=== PATIENT | female | born 1950 | race Caucasian/White ===

== ENCOUNTER 2016-09-08 10:15 | Outpatient (CLI) ==
[2016-06-30 12:50] VITALS: BMI 30.1
[2016-09-08 10:36] LABS: BASOPHILS # (AUTO) 0.1 K/uL (0-0.2); BASOPHILS % (AUTO) 0.9 % (0.0-3.0); EOSINOPHILS # (AUTO) 0.1 K/ul (0.0-0.7); EOSINOPHILS % (AUTO) 1.7 % (0.0-7.0); IMMATURE GRANULOCYTE % (AUTO) 0.3 % (0.0-5.0); LYMPHOCYTES # (AUTO) 2.2 K/uL (0.60-3.4); LYMPHOCYTES % (AUTO) 28.1 (10.0-50.0); MEAN CORPUSCULAR HEMOGLOBIN 28.7 pg (27.0-31.0); MEAN CORPUSCULAR HGB CONC 32.6 (31.8-35.4); MEAN CORPUSCULAR VOLUME 88.1 fl (81.0-99.0); MONOCYTES # (AUTO) 0.4 K/uL (0.4-2.0); MONOCYTES % (AUTO) 5.6 (0-10); NEUTROPHILS # (AUTO) 4.9 K/ul (2.0-6.9); NEUTROPHILS % (AUTO) 63.4; PLATELET COUNT 210 10^3/uL (140-440); RED BLOOD COUNT 4.88 10^6/ul (4.20-5.40); WHITE BLOOD COUNT 7.65 K/ul (4.6-10.2)
[2016-09-08 10:38] LABS: BILIRUBIN,URINE Negative (NEGATIVE); KETONES,URINE Negative (NEGATIVE); LEUKOCYTE ESTERASE ,URINE Negative (NEGATIVE); NITRITE,URINE Negative (NEGATIVE); PROTEIN,URINE Negative (NEGATIVE); URINE, BLOOD Negative (NEGATIVE)
[2016-09-08 10:41] LABS: ADD URINE MICROSCOPIC NO
[2016-09-08 10:42] LABS: MONO INTERNAL QC INTERNAL QC VALID
[2016-09-08 10:55] LABS: ALBUMIN 3.6 g/dL (3.4-5.0); ALBUMIN/GLOBULIN RATIO 0.97; ANION GAP 15.2; BILIRUBIN,TOTAL 0.59 mg/dL (0.00-1.20); BUN/CREATININE RATIO 15.18; CALCIUM 9.1 mg/dL (8.2-10.2); CREATININE 0.79 mg/dL (0.60-1.30); POTASSIUM 4.2 mmol/L (3.5-5.10); TOTAL PROTEIN 7.3 g/dL (5.8-8.1)
== END 2016-09-08 10:16 | disposition home or self-care (01) ==
LOC: LAB 10:15
PROVIDERS: ATTEND Nurse Practitioner Family
DX: Z20.828 Contact with and (suspected) exposure to other viral communicable diseases (principal); R35.0 Frequency of micturition; I49.9 Cardiac arrhythmia, unspecified; E53.8 Deficiency of other specified B group vitamins; E55.9 Vitamin D deficiency, unspecified
CPT/HCPCS: 36415; 80053; 81001; 82306; 82607; 85025; 86308

== ENCOUNTER 2017-03-04 11:05 | Outpatient (CLI) | payer OTHER ==
[2016-06-30 12:50] VITALS: BMI 30.1
== END 2017-03-04 11:06 | disposition home or self-care (01) ==
LOC: LAB 11:05
PROVIDERS: ATTEND Internal Medicine
DX: K50.918 Crohn's disease, unspecified, with other complication (principal); R10.9 Unspecified abdominal pain; R19.7 Diarrhea, unspecified
CPT/HCPCS: 36415

== ENCOUNTER 2017-04-02 10:45 | Outpatient (CLI) | payer OTHER ==
[2016-06-30 12:50] VITALS: BMI 30.1
[2017-04-02 12:48] LABS: BASOPHILS # (AUTO) 0.1 K/uL (0-0.2); BASOPHILS % (AUTO) 0.8 % (0.0-3.0); EOSINOPHILS # (AUTO) 0.2 K/ul (0.0-0.7); EOSINOPHILS % (AUTO) 2.3 % (0.0-7.0); HEMATOCRIT 43.4 % (37.0-47.0); HEMOGLOBIN 14.5 g/dl (12.0-16.0); IMMATURE GRANULOCYTE % (AUTO) 0.2 % (0.0-5.0); LYMPHOCYTES # (AUTO) 2.3 K/uL (0.60-3.4); LYMPHOCYTES % (AUTO) 26.6 (10.0-50.0); MEAN CORPUSCULAR HEMOGLOBIN 29.5 pg (27.0-31.0); MEAN CORPUSCULAR HGB CONC 33.4 (31.8-35.4); MEAN CORPUSCULAR VOLUME 88.4 fl (81.0-99.0); MONOCYTES # (AUTO) 0.6 K/uL (0.4-2.0); MONOCYTES % (AUTO) 6.6 (0-10); NEUTROPHILS # (AUTO) 5.5 K/ul (2.0-6.9); NEUTROPHILS % (AUTO) 63.5; PLATELET COUNT 219 10^3/uL (140-440); RED BLOOD COUNT 4.91 10^6/ul (4.20-5.40); WHITE BLOOD COUNT 8.62 K/ul (4.6-10.2)
[2017-04-02 13:14] LABS: ALBUMIN 3.7 g/dL (3.4-5.0); ALBUMIN/GLOBULIN RATIO 1.09; ANION GAP 15.7; BILIRUBIN,TOTAL 0.3 mg/dL (0.00-1.20); BUN/CREATININE RATIO 11.53; CALCIUM 9.8 mg/dL (8.2-10.2); CREATININE 0.78 mg/dL (0.60-1.30); POTASSIUM 4.7 mmol/L (3.5-5.10); TOTAL PROTEIN 7.1 g/dL (5.8-8.1)
[2017-04-02 13:39] LABS: CHOL/HDL RATIO 3.6 (4.5-5.5); FERRITIN 66.1 ng/mL (4.63-204.00)
== END 2017-04-02 10:46 | disposition home or self-care (01) ==
LOC: LAB 10:45
PROVIDERS: ATTEND Nurse Practitioner Family
DX: E53.8 Deficiency of other specified B group vitamins (principal); I49.9 Cardiac arrhythmia, unspecified; D64.9 Anemia, unspecified; I10 Essential (primary) hypertension
CPT/HCPCS: 36415; 80053; 80061; 82607; 82728; 83540; 83550; 84466; 85025

== ENCOUNTER 2017-04-13 13:20 | Outpatient (CLI) ==
[2016-06-30 12:50] VITALS: BMI 30.1
== END 2017-04-13 13:21 | disposition home or self-care (01) ==
LOC: LAB 13:20
PROVIDERS: ATTEND Nurse Practitioner Family
DX: E55.9 Vitamin D deficiency, unspecified (principal)
CPT/HCPCS: 36415; 82306

== ENCOUNTER 2017-09-17 00:38 | Outpatient (CLI) ==
[2017-09-17 22:26] VITALS: BMI 29.7
== END 2017-09-17 01:03 ==
LOC: AMBL 00:38
PROVIDERS: ATTEND Emergency Medicine
DX: J93.9 Pneumothorax, unspecified (principal); R06.9 Unspecified abnormalities of breathing; R00.0 Tachycardia, unspecified

== ENCOUNTER 2017-09-17 22:11 | Emergency (ER) | payer OTHER ==
[2017-09-17 22:26] VITALS: BMI 29.7
[2017-09-17] MEDS ORDERED: XOPENEX 1.25 MG NEB ONE (22:27)
[2017-09-17] MEDS ORDERED: LASIX IVP STA (22:30)
[2017-09-17] MEDS ORDERED: ATROVENT 0.02% NEB NEB STA (22:30)
[2017-09-17] MEDS ORDERED: XOPENEX 1.25 MG NEB STA (22:30)
[2017-09-17] MEDS ORDERED: SOLU-MEDROL 125 MG IVP STA (22:30)
--- NOTE | 2017-09-17 22:34 | ED.PDOC ---
General ED Provider: Dr. DORETHA GRIGGS Chief Complaint: Shortness of Air Stated Complaint: Shortness of breath since noon, EMT brought patient. Time Seen by Physician: 22:32 Mode of Arrival: Ambulance Information Source: Patient, EMT Primary Care Provider: DENVER ALCANTARA Nursing and Triage Documentation Reviewed and Agree: Yes Reviewed sepsis parameters & appropriate labs ordered?: Yes System Inflammatory Response Syndrome: Pulse >90 BPM, Resp >20/Minute Sepsis Protocol: For patient's 13 years and over: Temp is 96.8 and below OR 101 and greater Pulse >90 BPM Resp >20/minute Acutely Altered Mental Status Are patient's symptoms suggestive of a new infection, such as: -Pneumonia -Skin, Soft Tissue -Endocarditis -UTI -Bone, Joint Infection -Implantable Device -Acute Abdominal Infection -Wound Infection -Meningitis -Blood Stream Catheter Infection -Unknown Respiratory Complaint Exam - Shortness of Air Complaint/Exam Symptoms Are: Still present Timing: Constant Initial Severity: Severe Current Severity: Severe Character: Reports: Dyspnea at rest Aggravating: Reports: Allergens Alleviating: Reports: None Associated Signs and Symptoms: Reports: Cough, Wheezing, Rapid breathing. Denies: Chest pain with cough, Chest pain, Fever, Chills, Diaphoresis, Nasal congestion, Dizziness, Calf pain, Calf swelling, Edema, Labored breathing, Decreased intake Related History: Reports: Similar episode History of Healthcare-Acquired Pneumonia: No Pulmonary Embolism Risk Factors: Reports: None Cardiac Risk Factors: Reports: CAD, Hypertension Pseudomonas Risk Factors: Reports: None Tuberculosis Risk Factors: Reports: None Home Oxygen Use: No Recent Stress Test: No Recent Echo/LV Function: No Respiratory Distress: Severe Stridor Present: No Tracheal Deviation: No Subcutaneous Emphysema: No Accessory Muscle Use: Yes Retractions: Supraclavicular, Intercostal, Diaphragmatic Diminished Breath Sounds: Yes Prolonged Expiratory Phase: Yes Unable to Speak Full Sentences: Yes Fatigue: No Leg Swelling: No Blake's Sign Present: No Grunting Respirations: No Kussmaul Respirations: No Differential Diagnoses: CHF, COPD Exacerbation, Pneumonia Quality Indicators for AMI: EKG in 10min. Review of Systems - Review Of Systems Constitutional: Reports: Malaise, Weakness Eyes: Reports: No symptoms Ears, Nose, Mouth, Throat: Reports: No symptoms Respiratory: Reports: Cough, Short of air Cardiac: Reports: No symptoms GI: Reports: No symptoms : Reports: No symptoms Musculoskeletal: Reports: No symptoms Skin: Reports: No symptoms Neurological: Reports: No symptoms Endocrine: Reports: No symptoms Hematologic/Lymphatic: Reports: No symptoms All Other Systems: Reviewed and Negative Past Medical History - Past Medical History Previously Healthy: Yes Endocrine: Reports: None Cardiovascular: Reports: Hypertension Respiratory: Reports: COPD Hematological: Reports: None Gastrointestinal: Reports: Crohn's Genitourinary: Reports: None Neuro/Psych: Reports: Depression Musculoskeletal: Reports: Arthritis, Back Pain Cancer: Reports: None Last Menstrual Period: post menopausal - Surgical History General Surgical History: Reports: Appendectomy, Other (partial colectomy, Parathyroidectomy rt side) - Family History Family History: Reports: None - Social History Smoking Status: Former smoker Hx Substance Use: No Alcohol Screening: None - Immunizations Tetanus Shot up to Date: No (unknown) Physical Exam - Physical Exam Appearance: Ill-appearing, Obese Ill-appearing: Severe Eyes: ELDON, EOMI, Conjunctiva clear ENT: Ears normal, Nose normal, Oropharynx normal Respiratory: Breath sounds diminished, Crackles, Wheezes Cardiovascular: RRR, Tachycardia GI/: Soft, Nontender, No masses, Bowel sounds normal, No Organomegaly Musculoskeletal: Normal strength, ROM intact, No edema, No calf tenderness Skin: Warm, Dry, Normal color Neurological: Sensation intact, Motor intact, Reflexes intact, Cranial nerves intact, Alert, Oriented Psychiatric: Affect appropriate, Mood appropriate Re-Evaluation - Re-Evaluation Time of Re-Evaluation: 00:26 Status: Improved Physician Notification - Case Discussed Time of Notification: 00:26 (Dr Ba) Critical Care Note - Critical Care Note Total Time (mins): 30 Course - Course Hematology/Chemistry: 09/17/17 22:53 09/17/17 22:53 Orders, Labs, Meds: Lab Review 09/17/17 09/17/17 09/17/17 22:30 22:53 22:53 WBC 11.67 H RBC 5.00 Hgb 14.9 Hct 44.3 MCV 88.6 MCH 29.8 MCHC 33.6 RDW Coeff of Rubin 13.6 Plt Count 204 Immature Gran % (Auto) 0.3 Neut % (Auto) 63.8 Lymph % (Auto) 28.7 Banks % (Auto) 5.6 Eos % (Auto) 1.2 Baso % (Auto) 0.4 Immature Gran # (Auto) 0.0 Neut # 7.4 H Lymph # 3.4 Banks # 0.7 Eos # 0.1 Baso # 0.1 Puncture Site Rrad O2 Saturation 87.0 L ABG pH 7.329 L ABG pCO2 45.4 H ABG pO2 57.0 L* ABG HCO3 23.9 ABG Total CO2 25 ABG Base Excess -2 Hung Test + O2 Delivery Device Neb Oxygen Liter Flow 8.00 Sodium 142 Potassium 3.7 Chloride 110 H Carbon Dioxide 22 L Anion Gap 13.7 BUN 10 Creatinine 0.82 Estimated GFR (MDRD) 70.00 BUN/Creatinine Ratio 12.19 Glucose 143 H Lactic Acid Calcium 9.3 Total Bilirubin 0.7 AST 22 ALT 21 Alkaline Phosphatase 122 Total Creatine Kinase 72 Troponin I 0.0240 Total Protein 7.9 Albumin 3.9 Globulin 4.0 Albumin/Globulin Ratio 0.98 Procalcitonin 09/17/17 09/17/17 22:53 22:53 WBC RBC Hgb Hct MCV MCH MCHC RDW Coeff of Rubin Plt Count Immature Gran % (Auto) Neut % (Auto) Lymph % (Auto) Banks % (Auto) Eos % (Auto) Baso % (Auto) Immature Gran # (Auto) Neut # Lymph # Banks # Eos # Baso # Puncture Site O2 Saturation ABG pH ABG pCO2 ABG pO2 ABG HCO3 ABG Total CO2 ABG Base Excess Hung Test O2 Delivery Device Oxygen Liter Flow Sodium Potassium Chloride Carbon Dioxide Anion Gap BUN Creatinine Estimated GFR (MDRD) BUN/Creatinine Ratio Glucose Lactic Acid 8.9 Calcium Total Bilirubin AST ALT Alkaline Phosphatase Total Creatine Kinase Troponin I Total Protein Albumin Globulin Albumin/Globulin Ratio Procalcitonin < 0.05 Orders Category Date Time Status ABG DRAW REQUEST Stat CARDIO 09/17/17 22:31 Completed EKG-(ED ONLY) Stat CARDIO 09/17/17 22:30 Completed NEBULIZER TREATMENT Stat CARDIO 09/17/17 22:31 Completed ED CATHETER INSERTION AND CARE .ONCE EMERGENCY 09/17/17 23:17 Active ABG Stat LAB 09/17/17 22:30 Completed CBC W/ AUTO DIFF Stat LAB 09/17/17 22:53 Completed COMPREHENSIVE METABOLIC PANEL Stat LAB 09/17/17 22:53 Completed CREATINE KINASE Stat LAB 09/17/17 22:53 Completed LACTIC ACID Stat LAB 09/17/17 22:53 Completed PROCALCITONIN Stat LAB 09/17/17 22:53 Completed SPUTUM CULTURE Stat LAB 09/17/17 22:32 Uncollected TROPONIN I Stat LAB 09/17/17 22:53 Completed Furosemide [Lasix] MEDS 09/17/17 22:30 Discontinued 40 mg IVP ONCE STA Ipratropium [place] 0.02% Neb [Atrovent 0.02% Neb] MEDS 09/17/17 22:30 Discontinued 1 vial NEB ONCE STA Levalbuterol HCl [Xopenex 1.25 mg] MEDS 09/17/17 22:27 Discontinued 1 vial NEB .STK-MED ONE Levalbuterol HCl [Xopenex 1.25 mg] MEDS 09/17/17 22:30 Discontinued 1 vial NEB ONCE STA Lidocaine HCl [Uro-Jet] MEDS 09/17/17 23:17 Discontinued 10 ml [id number] ONCE STA Methylprednisolone Sod Succ/Pf [Solu-Medrol 125 mg] MEDS 09/17/17 22:30 Discontinued 125 mg IVP ONCE STA CHEST, 1V AP ONLY Stat RADS 09/17/17 23:[address] CHEST W/O CONTRAST Stat RADS 09/17/17 22:30 Completed Medications Discontinued Medications Generic Name Dose Route Start Last Admin Trade Name Freq PRN Reason Stop Dose Admin Furosemide 40 mg 09/17/17 22:30 09/17/17 22:17 Lasix IVP 09/17/17 22:31 40 mg ONCE STA Administration Ipratropium [place] 1 vial 09/17/17 22:30 09/17/17 22:20 Atrovent 0.02% Neb NEB 09/17/17 22:31 1 vial ONCE STA Administration Levalbuterol HCl 1 vial 09/17/17 22:30 09/17/17 22:51 Xopenex 1.25 Mg NEB 09/17/17 22:31 Not Given ONCE STA Lidocaine HCl 10 ml 09/17/17 23:17 09/17/17 23:49 Uro-Jet MUCOUSMEMB 09/17/17 23:18 Not Given ONCE STA Methylprednisolone Sodium Succinate 125 mg 09/17/17 22:30 09/17/17 22:13 Solu-Medrol 125 Mg IVP 09/17/17 22:31 125 mg ONCE STA Administration Vital Signs: Temp Pulse Resp BP Pulse Ox 09/17/17 22:49 95 H 31 H 144/109 H 88 L 09/17/17 22:32 86 31 H 139/77 92 L 09/17/17 22:13 96.3 F L 102 H 27 H 170/86 H 85 L Departure - Departure Time of Disposition: 23:22 Disposition: TSF SHORT-TRM HOSP Discharge Problem: COPD exacerbation, Pneumothorax on left Instructions: COPD (Chronic Obstructive Pulmonary Disease) (ED) Condition: Serious Pt referred to PMD for follow-up: No IPMP verified?: No Additional Instructions: Chest Xray showed 4.1 mm apical pneumo after the Needle thoracotomy Patient will be transferred to [facility]. Allergies/Adverse Reactions: Allergies albuterol Adverse Reaction (Verified 09/17/17 22:22) Difficulty Breathing doxycycline Adverse Reaction (Verified 09/17/17 22:22) Td Allergy (Severe, Uncoded 09/17/17 22:22) made me sick Home Medications: Ambulatory Orders Levalbuterol Tartrate [Xopenex Hfa] 2 puff IH Q6HR PRN 09/08/13 Flexeril 10 mg PO BID PRN 07/12/14 Diltiazem HCl [Cardizem Cd] 120 mg PO DAILY 11/23/14 Fluticasone/Salmeterol [Advair 250-50 Diskus] 2 each IH BID BREAKFAST&LUNCH Calcium Carbonate/Vitamin D3 [Calcium + Vitamin D Tablet] 1 each PO DAILY Multivitamin [Multi-Day Vitamins] 1 each PO d 10/31/15 Levalbuterol HCl [Xopenex] 1.25 mg IH BID PRN 06/25/16 L.acidoph,Paracasei, B.lactis [Probiotic] 1 each PO DAILY 09/08/16 Levalbuterol Tartrate [Xopenex Hfa] 15 gm IH DAILY PRN 04/13/17 Transfer Form Completed: Yes Disposition Discussed With: Patient, Family
[2017-09-17] MEDS ORDERED: URO-JET MUCOUSMEMB STA (23:17)
--- NOTE | 2017-09-17 23:23 | CT ---
EXAM: CT of the chest without contrast. HISTORY: Short of breath. PROCEDURE: Contiguous axial CT images of the chest without contrast with coronal and sagittal reform ats. FINDINGS: The heart is within normal limits in size. The thoracic aorta is within normal limits in d iameter. There are calcified mediastinal and hilar lymph nodes. There are emphysematous changes thro ughout both lungs. There are scattered areas of interstitial fibrosis and scarring in the right lung. There is a large left pneumothorax. There is moderate left to right mediastinal shift, suspicious fo r a tension pneumothorax. There is left lung consolidation. The bones and soft tissues are unremarkab le. The adrenal glands and liver are normal in appearance. There is a ventral hernia which is incompl etely visualized measuring at least 8.5 x 4 cm. There is fat in the visualized portion of the hernia. Impression: Large left pneumothorax with moderate left to right mediastinal shift, suspicious for a tension pneumothorax. Recommend stat chest tube placement. Left lung consolidation consistent with atelectasis and/or pneumonia. Chronic obstructive pulmonary disease with interstitial fibrosis and scarring. Ventral hernia as described. Critical result: Results discussed with the patient's ER physician Dr Perry on 09/17/2017 at 11:17 p.m.
--- NOTE | 2017-09-18 00:07 | DI ---
EXAM: Portable chest HISTORY: Needle aspiration COMPARISON: CT scan thorax 09/17/2017 FINDINGS: The cardiomediastinal silhouette is stable. There are emphysematous changes. There are b enign granulomatous changes.. There has been partial re-expansion of the left lung with 4.[address] eural separation at the left apex. Consolidation is noted posteromedially at the left lung base.. S cattered interstitial fibrotic changes noted IMPRESSION: Partial reexpansion of the left lung with left apical pneumothorax measuring 4.1 mm pleural separatio n. Consolidation left lung base may be related to atelectasis and/or infiltrate. Scattered fibrotic change
[2017-09-18 00:43] VITALS: BP 112/68; TEMP 97.3
== END 2017-09-18 00:35 | disposition short-term general hospital (02) ==
LOC: ED 22:11
DX: J44.1 Chronic obstructive pulmonary disease with (acute) exacerbation (principal); J93.9 Pneumothorax, unspecified; K50.90 Crohn's disease, unspecified, without complications; I10 Essential (primary) hypertension; I25.10 Atherosclerotic heart disease of native coronary artery without angina pectoris; R53.1 Weakness; R53.83 Other fatigue; R06.02 Shortness of breath; R00.0 Tachycardia, unspecified; Z87.891 Personal history of nicotine dependence; Z79.899 Other long term (current) drug therapy; I48.91 Unspecified atrial fibrillation; R06.2 Wheezing
CPT/HCPCS: 36415; 80053; 82550; 82803; 83605; 84145; 84484; 85025; 93005; 93010; 94640; 96374; 96375; 99285

== ENCOUNTER 2018-06-10 14:51 | Outpatient (CLI) | payer OTHER ==
[2018-03-02 18:55] VITALS: BMI 29.7
== END 2018-06-10 14:52 | disposition home or self-care (01) ==
LOC: CAR 14:51
PROVIDERS: ATTEND Internal Medicine Pulmonary Disease
DX: G47.30 Sleep apnea, unspecified (principal)
CPT/HCPCS: 95810

== ENCOUNTER 2018-10-14 12:17 | Outpatient (CLI) | payer OTHER ==
[2018-03-02 18:55] VITALS: BMI 29.7
== END 2018-10-14 12:18 | disposition home or self-care (01) ==
LOC: RHC-LAB 12:17
PROVIDERS: ATTEND Nurse Practitioner Family
DX: E55.9 Vitamin D deficiency, unspecified (principal); E66.9 Obesity, unspecified; G47.00 Insomnia, unspecified; E53.8 Deficiency of other specified B group vitamins; Z99.81 Dependence on supplemental oxygen
CPT/HCPCS: 36415; 80053; 80061; 82306; 82607; 84443; 85025

== ENCOUNTER 2018-10-25 11:56 | Outpatient (CLI) ==
[2018-03-02 18:55] VITALS: BMI 29.7
--- NOTE | 2018-10-25 13:25 | CT ---
EXAM: CT of the abdomen pelvis with and without contrast History: Generalized abdominal pain, abdominal hernia, history of appendectomy. Comparison: CT abdomen pelvis 01/22/2017 Technique: Multiplanar CT images through the abdomen pelvis were obtained with and without the admin istration of IV contrast Findings: Subsegmental atelectasis seen within the lower lungs. No acute osseous abnormalities. Mo derate to severe degenerative disc disease at L5-S1. No renal stones and no hydronephrosis. Adenomyomatosis of the gallbladder fundus again noted. The p reviously described soft tissue density adjacent to the gallbladder is no longer seen. No gallstones identified by CT. Calcified granulomas within the spleen. No focal liver lesions. Pancreas is wit hin normal limits. Adrenal glands are unremarkable. No renal masses. Postsurgical changes of the b owel. No bowel obstruction. No bladder wall thickening. 3.2 cm left adnexal cyst previously measur ed 2.3 cm. No perirectal inflammation. No free air and no ascites. No change in the fat containing umbilical hernia measuring about 7.7 cm. Impression: 1. No acute intra-abdominal or pelvic process. 2. Increasing size of left adnexal cyst. Recommend further evaluation with pelvic ultrasound. 3. Gallbladder wall adenomyomatosis again noted. Previously described soft tissue density adjacent to the gallbladder wall has resolved. 4. No significant interval change in the fat containing umbilical hernia.
== END 2018-10-25 11:57 | disposition home or self-care (01) ==
LOC: RAD 11:56
PROVIDERS: ATTEND Nurse Practitioner
DX: Z09 Encounter for follow-up examination after completed treatment for conditions other than malignant neoplasm (principal); R10.84 Generalized abdominal pain

== ENCOUNTER 2019-02-04 13:05 | Outpatient (CLI) | payer OTHER ==
[2018-03-02 18:55] VITALS: BMI 29.7
== END 2019-02-04 13:06 | disposition home or self-care (01) ==
LOC: CAR 13:05
PROVIDERS: ATTEND Nurse Practitioner Family
DX: J44.9 Chronic obstructive pulmonary disease, unspecified (principal); Z99.81 Dependence on supplemental oxygen
CPT/HCPCS: 94761

== ENCOUNTER 2019-04-26 10:33 | Outpatient (CLI) ==
[2018-03-02 18:55] VITALS: BMI 29.7
--- NOTE | 2019-04-26 11:21 | CT ---
EXAM: CT chest without contrast HISTORY: Dyspnea with exertion COMPARISON: 09/17/2017 TECHNIQUE: CT chest performed without intravenous contrast. Coronal and sagittal reformatted images obtained. FINDINGS: Thoracic inlet unremarkable. Heart normal in size. No pericardial effusion. Aorta rosaura l in caliber. Evaluation for lymphadenopathy limited without contrast. No lymphadenopathy identifie d. Mildly enlarged subcarinal lymph node measures 1 x 1 cm. Calcified mediastinal and right hilar l ymph nodes, consistent with old granulomatous disease. Visualized portion upper abdomen demonstrates no acute abnormality. Granulomatous calcification in the spleen. No acute abnormalities of the bon es. Degenerative change in the spine. Central airway patent. Emphysematous change that is greatest in the left lung apex where there are bullous changes. No pleural effusion or pneumothorax. No air space consolidation. Areas of interstitial fibrosis and scarring, right greater than left, and great est in the posterior superior right lower lobe IMPRESSION: 1. No airspace consolidation. 2. Emphysema, greatest in the left upper lobe where there are bullous changes. 3. Interstitial fibrosis with scarring. 4. Mild subcarinal lymphadenopathy, nonspecific. 5. Findings of old granulomatous disease
== END 2019-04-26 10:34 | disposition home or self-care (01) ==
LOC: RAD 10:33
PROVIDERS: ATTEND Internal Medicine Critical Care Medicine
DX: R06.09 Other forms of dyspnea (principal)